=== PATIENT | female | born 1985 | race Caucasian/White ===

== ENCOUNTER 2021-10-28 09:35 | Emergency (ER) | payer MEDICAID ==
[~2021-10-28] VITALS: Ht 167.6 cm; Wt 61.7 kg
[2021-10-28 09:43] VITALS: BP_SYST 120
[2021-10-28] MEDS ORDERED: IBUP-1969 PO (14:29)
[2021-10-28 20:05] VITALS: BP_SYST 122
== END 2021-10-28 17:00 | disposition home or self-care (01) ==
LOC: SED 09:35
DX: S05.12XA Contusion of eyeball and orbital tissues, left eye, initial encounter (principal); Z79.899 Other long term (current) drug therapy; Y04.0XXA Assault by unarmed brawl or fight, initial encounter; Y93.89 Activity, other specified; Y92.89 Other specified places as the place of occurrence of the external cause; Y99.8 Other external cause status
CPT/HCPCS: 70450-TC; 70480; 76376; 99284